=== PATIENT | male | born 1995 | race Hispanic/Latino ===

== ENCOUNTER 2017-12-22 08:20 | Emergency (ER) | payer BC ==
[~2017-12-22] VITALS: Ht 172.7 cm; Wt 88.0 kg
[2017-12-22 08:50] VITALS: BP 132/75
== END 2017-12-22 08:52 | disposition home or self-care (01) | DRG 156 ==
LOC: ED 08:20
PROC: 09C3XZZ Extirpation of Matter from Right External Auditory Canal, External Approach (ICD-10-PCS; principal; 2017-12-22)
DX: T16.1XXA Foreign body in right ear, initial encounter (principal); X58.XXXA Exposure to other specified factors, initial encounter